=== PATIENT | female | born 1990 | race African-American/Black ===

== ENCOUNTER 2016-07-21 17:19 | Emergency (ER) | payer SELFPAY ==
--- NOTE | 2016-07-21 17:41 | ED Physician Documentation ---
Seizure - HISTORIAN Historian: patient, other (law enforcement) - HPI Stated Complaint: seizure Chief Complaint: Seizure Additional Information: she is in [facility]. She had a focal, tonic clonic seizure. he has had seizures x 3 years. she has never been placed on seizure medicine. she has been to the hospital every time she had a seizure. the specialist told her her seizures were due to stress so no seizure meds were prescribed. She has had ct scans for seizure in the past. she doesn't appear post-ictal. she is at baseline now. she is polite and conversational. Timing/Onset/Duration: single episode, other ([facility] personel witnessed her seizure. Her eyes roled back and her fingers and arms were clonic) Last known Well Date: 07/21/16 Last Known Well Time: 17:42 Last known Well Code/Unknown Code: Known Witnessed By: bystander Preceding Symptoms: none Character of Seizure(s): lost consciousness, unresponsiveness, staring Postictal Symptoms: none Location of Injury: none Further Comments: no - ROS NEURO/PSYCH: headache EYES/ENT: none CVS/RESP: none GI/: adominal pain. denies: nausea, vomiting MS/SKIN/LYMPH: none - PAST HX Previous seizure/seizure disorder: occasional Etiology: unsure Other History: none Surgeries/Procedures: none Immunizations: UTD Allergies/Adverse Reactions: Allergies Allergy/AdvReac Type Severity Reaction Status Date / Time zolpidem tartrate Allergy No Reaction Verified 07/21/16 17:23 [From Ambien] Home Medications: Ambulatory Orders Medication Instructions Recorded NK [NK] 07/21/16 - SOCIAL HX Smoking History: non-smoker Alcohol Use: none Drug Use: none - FAMILY HX Family History: none - VITAL SIGNS Vital Signs: Vital Signs Temp Pulse Resp BP Pulse Ox 98.1 F 91 H 14 138/83 99 07/21/16 17:27 07/21/16 17:27 07/21/16 17:27 07/21/16 17:27 07/21/16 17:27 - REVIEWED ASSESSMENTS Nursing Assessment Reviewed: Yes Vitals Reviewed: Yes Progress - Results/Orders Results/Orders: not active seizing, was given 2 mg ativan in ambulance ride. we'll observe on monitors 1830: resting comfortably, feels very drowsy, but got ativan in EMS. still at baseline, will DC. She is in agreement. Seizure Physical Exam - Physical Exam General Appearance: no acute distress, alert Altered Mental Status Higher Functions: alert, oriented x3, no evidence of acute CVA, mood/affect nml EENT: nml eye inspection Neck/Back: normal inspection Respiratory: no resp. distress, no evidence of rib injury CVS: reg rate & rhythm Abdomen: non-tender Skin: warm/dry, normal color Extremities: normal range of motion Observed Seizure Activity in ED: focal, unresponsive Seizure Duration: 1 - Nexus Criteria Neg Nexus Criteria: Nexus criteria neg Discharge Clincal Impression: Seizure disorder Home Medications: Ambulatory Orders NK [NK] 07/21/16 Condition: Good Disposition: HOME, SELF-CARE Decision to Admit: NO Date of Decison to Admit: 07/21/16 Decision Time: 18:33
[2016-07-21 18:48] VITALS: BP 123/64
== END 2016-07-21 18:45 | disposition home or self-care (01) ==
LOC: ED 17:19
DX: R56.9 Unspecified convulsions (principal)
CPT/HCPCS: 99283